=== PATIENT | female | born 1985 | race American Indian/Alaskan Native ===

== ENCOUNTER 2021-11-25 21:42 | Emergency (ER) | payer SELFPAY ==
[2021-11-25 21:55] VITALS: BP 128/85
== END 2021-11-26 03:08 | disposition left against medical advice (07) ==
LOC: ED 21:42
DX: N92.0 Excessive and frequent menstruation with regular cycle (principal); Z53.21 Procedure and treatment not carried out due to patient leaving prior to being seen by health care provider